=== PATIENT | female | born 1955 | race Caucasian/White ===

== ENCOUNTER → 2017-06-22 | Outpatient (CLI) | payer MEDICARE, OTHER ==
[~2017-06-22] MED LIST: ASPI-496 PO; BUPR150T6 PO; DULO60CA55 PO; LIDO700A5 TD; METH500T7 PO; OMEP-110 PO; OXYC1TAB8 PO; PREG50CA PO; TRIA1CAP3 PO
== END | disposition home or self-care (01) ==
LOC: CFH 13:51
PROVIDERS: ATTEND Nurse Practitioner Family
DX: S41.012A Laceration without foreign body of left shoulder, initial encounter (principal); M75.52 Bursitis of left shoulder; M25.412 Effusion, left shoulder; X58.XXXA Exposure to other specified factors, initial encounter; Y93.89 Activity, other specified; Y92.89 Other specified places as the place of occurrence of the external cause; Y99.8 Other external cause status

== ENCOUNTER → 2017-12-17 | Outpatient (CLI) | payer MEDICARE, OTHER | END | disposition home or self-care (01) | LOC: CFH 13:35 | PROVIDERS: ATTEND Genetic Counselor, MS | DX: N64.4 Mastodynia (principal) | CPT/HCPCS: 77066 ==

== ENCOUNTER → 2017-12-20 | Outpatient (CLI) | payer MEDICARE, OTHER ==
[~2017-12-20] MED LIST changes: +GADOBUTROL 10 MMOL/10 ML PFS ONE
== END | disposition home or self-care (01) ==
LOC: RAD 07:57
PROVIDERS: ATTEND Genetic Counselor, MS
DX: R51 Headache (principal)
CPT/HCPCS: 70553; A9585

== ENCOUNTER → 2018-03-21 | Outpatient (CLI) | payer MEDICARE, OTHER ==
[~2018-03-21] MED LIST changes: -GADOBUTROL 10 MMOL/10 ML PFS ONE; +OMNIPAQUE 350 MG/ML, 150 ML BOTTLE ONE
== END | disposition home or self-care (01) ==
LOC: CFH 13:29
PROVIDERS: ATTEND Urology
DX: R31.21 Asymptomatic microscopic hematuria (principal); K44.9 Diaphragmatic hernia without obstruction or gangrene; Z90.49 Acquired absence of other specified parts of digestive tract
CPT/HCPCS: 74178; Q9967

== ENCOUNTER → 2019-02-02 | Outpatient (CLI) | payer MEDICARE, OTHER ==
[~2019-02-02] MED LIST changes: -OMNIPAQUE 350 MG/ML, 150 ML BOTTLE ONE
== END | disposition home or self-care (01) ==
LOC: RAD 10:49
PROVIDERS: ATTEND Pain Medicine Pain Medicine
DX: M79.662 Pain in left lower leg (principal); R60.0 Localized edema

== ENCOUNTER 2019-07-25 12:01 | Outpatient (CLI) | payer MEDICARE, OTHER ==
[~2019-07-25 12:01] MED LIST changes: -DULO60CA55 PO; +DULO60CA56 PO
[2019-07-25] MEDS ORDERED: OMNIPAQUE 350 MG/ML, 100ML BOTTLE ONE (16:10)
== END 2019-07-25 23:59 | disposition home or self-care (01) ==
LOC: CFH 12:01
PROVIDERS: ATTEND Internal Medicine Gastroenterology
DX: M50.121 Cervical disc disorder at C4-C5 level with radiculopathy (principal); K44.9 Diaphragmatic hernia without obstruction or gangrene; M51.36 Other intervertebral disc degeneration, lumbar region
CPT/HCPCS: 72141; 74177; 82565; Q9967

== ENCOUNTER 2020-08-06 13:41 | Outpatient (CLI) | payer MEDICARE ==
[2020-08-06] MEDS ORDERED: OMNIPAQUE 350 MG/ML, 100ML BOTTLE ONE (15:25)
== END 2020-08-06 23:59 | disposition home or self-care (01) ==
LOC: CFH 13:41
PROVIDERS: ATTEND Genetic Counselor, MS
DX: K76.0 Fatty (change of) liver, not elsewhere classified (principal); K44.9 Diaphragmatic hernia without obstruction or gangrene; K57.30 Diverticulosis of large intestine without perforation or abscess without bleeding; K43.9 Ventral hernia without obstruction or gangrene; I51.7 Cardiomegaly; Z90.49 Acquired absence of other specified parts of digestive tract
CPT/HCPCS: 74177; Q9967

== ENCOUNTER → 2021-04-22 | Outpatient (CLI) | payer MEDICARE ==
[~2021-04-22] MED LIST changes: +BUPR150T22 PO; -BUPR150T6 PO; +METH-639 PO; -METH500T7 PO
== END | disposition home or self-care (01) ==
LOC: CFH 12:20
PROVIDERS: ATTEND Genetic Counselor, MS
DX: Z12.31 Encounter for screening mammogram for malignant neoplasm of breast (principal)
CPT/HCPCS: 77063; 77067